=== PATIENT | female | born 1960 | race Caucasian/White ===

== ENCOUNTER 2025-01-01 15:17 | Emergency (ER) | payer MEDICARE, SELFPAY ==
[2025-01-01 15:19] VITALS: BP 122/70; PULSE 96; RESP 15; TEMP 36.4; O2SAT 98; BMI 29.2
--- NOTE | 2025-01-01 16:00 | ED.VIS.GI ---
HPI HPI - GI History of Present Illness Chief Complaint: Abd Pain Detail of Chief Complaint: Abdominal pain Informant: patient Narrative Narrative: Patient presents to the emergency department complaint of abdominal pain that started 5 days ago. She states she has got cyst and left lower quadrant pain. She denies fever. She denies blood in her stool or black tarry stool. She denies urinary symptoms. She states that years ago she had pain on the right side and was diagnosed with colitis. She is never had a colonoscopy. No prior abdominal surgeries. PFSH PFSH Home Medications ?Medication ?Instructions ?Recorded ?Last Taken ?Type ciprofloxacin HCl 500 mg tablet 500 mg PO BID #14 tabs 01/01/25 Unknown Rx (Cipro) metronidazole 500 mg tablet 500 mg PO Q8H #21 tabs 01/01/25 Unknown Rx Allergy/AdvReac Type Severity Reaction Status Date / Time Penicillins Allergy Mild RASH Verified 01/01/25 15:19 Social History Smoking Status: Never smoker ROS ROS ED Review of Systems ROS Unobtainable: other Constitutional Constitutional ED: Reports lethargy; Denies chills, fever(s), sweats or weight loss Eyes Eyes: Denies blurry vision, change in vision or diplopia ENT ENT ED: Denies rhinorrhea or sore throat Cardiovascular Cardiovascular: Denies chest pain, orthopnea or racing heartbeat Respiratory/Chest Respiratory/Chest: Denies cough, dyspnea, dyspnea on exertion, orthopnea or sputum Gastrointestinal Gastrointestinal: Reports abdominal pain; Denies diarrhea, nausea or vomiting Genitourinary Genitourinary ED: Denies dysuria, hematuria or urinary frequency Musculoskeletal Musculoskeletal: Denies arthralgias, back pain, myalgias or neck pain Integumentary Denies abscess, Abrasions or rash Neurologic Neurologic: Denies headache(s) or weakness Psychiatric Psychiatric: Denies anxiety, depression or suicidal thoughts Endocrine Endocrinology: Denies polydipsia, polyphagia or polyuria Hematologic/Lymphatic Hematologic/Lymphatic: Denies easy bleeding, easy bruising or lymphadenopathy Allergic/Immunologic Allergic/Immunologic ED: Denies mouth swelling, tongue swelling or urticaria EXAM Physical Exam Const Vital Signs: 01/01/25 15:19 01/01/25 17:18 Temperature 97.6 F L Temperature Source Oral Pulse Rate 96 82 Respiratory Rate 15 12 Blood Pressure 122/70 H 132/68 H Blood Pressure Mean 87 89 Pulse Ox 98 95 Oxygen Delivery Method Room Air Room Air Positive well nourished and well developed General Appearance ED: well developed and NAD HEENT Reports TM's clear and moist mucous membranes normocephalic and atraumatic; Negative for trauma or tenderness Tympanic Membrane ED: Yes TM's clear Eyes PERRL and EOMs intact bilaterally General Eye ED: Negative for pale conjunctiva or scleral icterus Neck no lymphadenopathy, supple and no JVD General: Negative for tenderness Chest Wall inspection of chest normal and palpation of chest normal Chest: Negative for tenderness Resp normal respiratory effort and clear to auscultation bilaterally Effort and Inspection: Negative for respiratory distress or pain with movement Auscultation: Negative for rhonchi, wheezes or diminished lung sounds Cardio regular rate, regular rhythm, S1 normal heart sound, S2 normal heart sound and no murmurs Peripheral Pulses: pulses 2+ throughout GI normal to inspection, nondistended, normoactive bowel sounds, soft to palpation, non-distended and no masses GI Narrative: Diffuse tenderness over the left lower quadrant and suprapubic region with some guarding. There is no rebound, rigidity, or renal signs. No mass palpated. Back/Spine no CVA tenderness and no thoracic nor lumbar tenderness Extremity normal to inspection General Extremety ED: Negative for edema General Extremity: Negative for edema Neuro oriented x3, CN's II-XII intact bilaterally, no sensory deficits noted and gait normal Sensorium / Orientation: awake, alert, oriented to person, oriented to place and oriented to time Motor Exam: strength 5/5 throughout and strength abnormal Psych mental status grossly normal Skin no rashes or lesions noted and no wounds MDM MDM MDM Narrative Medical decision making narrative: Patient presents with abdominal pain ongoing for about 5 days. Clinically looks well. Pain mostly left-sided. Differential would be kidney stone versus UTI versus diverticulitis or other acute process. IV line established on arrival. She did not want thing for pain. CBC with differential showed a normal white count of 6.5 with hemoglobin 12.9 platelet count of 345. Chemistries unremarkable. LFTs were normal. Lactate normal at 1.2. Urinalysis normal without signs of infection. CT scan of the abdomen pelvis with IV contrast obtained showed inflammatory changes to the right lower quadrant central fat as well as left lower quadrant which could be indicative of diverticulitis. No other acute abnormalities noted. The appendix was normal. There is no evidence of perforation or abscess. Patient was started on Cipro and Flagyl p.o. Discussed results with patient and her significant other. Will refer to GI for follow-up as she has never had a colonoscopy and will likely require colonoscopy once her symptoms have resolved. She is advised to return if worsening pain, fever, vomiting, bloody stools, or her condition should worsen anyway. Lab Data Attestation: I reviewed the patient's lab results. Labs: Laboratory Results - last 24 hr 01/01/25 01/01/25 16:18 16:25 WBC 6.5 RBC 4.39 Hgb 12.9 Hct 40.1 MCV 91.3 MCH 29.4 MCHC 32.2 RDW Std Deviation 41.7 RDW Coeff of Camryn 12.5 Plt Count 345 MPV 8.5 Immature Gran % (Auto) 0.200 Neut % (Auto) 58.1 Lymph % (Auto) 31.6 [place] % (Auto) 7.2 Eos % (Auto) 2.1 Baso % (Auto) 0.8 Absolute Neuts (auto) 3.8 Absolute Lymphs (auto) 2.06 Nucleated RBC % 0 Sodium 139 Potassium 3.9 Chloride 105 Carbon Dioxide 22.5 Anion Gap 12 BUN 11 Creatinine 0.97 Estim Creat Clear Calc 49.76 L Est GFR (MDRD) Non-Af 65 BUN/Creatinine Ratio 11.1 Glucose 118 H Lactic Acid 1.2 Calcium 8.9 Total Bilirubin < 0.15 AST 17 ALT 18 Alkaline Phosphatase 112 H Total Protein 7.1 Albumin 4.3 Globulin 2.8 Albumin/Globulin Ratio 1.5 Lipase 25 Urine Color Yellow Urine Clarity Clear Urine pH 6.0 Ur Specific [place] 1.015 Urine Protein 15 H Urine Glucose (UA) Normal Urine Ketones Negative Urine Occult Blood 10 H Urine Nitrite Negative Urine Bilirubin Negative Urine Urobilinogen Normal Ur Leukocyte Esterase Negative Radiography Diagnostic Testing: Clinical Impression(s) from Imaging Studies Abdomen/Pelvis CT 01/01/25 16:53 IMPRESSION: Right lower quadrant inflammation with central fat (series 2, image 78) may reflect epiploic appendagitis. Additional differential may include acute diverticulitis due to inflammation in close proximity to the distal left colon and underlying scattered diverticuli. Scattered thickened and inflamed small bowel loops may reflect enteritis. No bowel obstruction. Mild thickening of the urinary bladder wall which may reflect partial nondistention versus cystitis; consider correlation with urinalysis. Reading Location: [facility] Discharge Plan Triage Chief Complaint: Abd Pain ED Provider: Kena Grissom Dx/Rx/DC Orders Clinical Impression: Abdominal pain, Acute diverticulitis Instructions: Diverticulitis Dc Prescriptions: New ciprofloxacin HCl [Cipro] 500 mg tablet 500 mg PO BID Qty: 14 0RF metronidazole 500 mg tablet 500 mg PO Q8H Qty: 21 0RF Primary Care Provider: Deb Ayon NP Referrals: Devin Lake DO [Med Staff - Active Staff] - 5-7 Days Deb Ayon FIELD SERVICE ANALYST, FIELD SERVICE ANALYST-C [Primary Care Provider] - Print Language: Lithuanian Disposition Disposition: Home, Self Care
[2025-01-01 16:31] LABS: Bacteria 0 SEEN /hpf (None Seen); Mucous, Urine 0 SEEN /hpf (<or=2+)
[2025-01-01 16:49] LABS: Absolute Lymphocyte Count 2.06 X10^3/uL (0.83-4.51); Absolute Neutrophil Count 3.8 X10^3/uL (2.0-7.7); Basophil# 0.05 X10^3/uL; Basophil% 0.8 % (0-1); Eosinophil# 0.14 X10^3/uL; Eosinophils% 2.1 % (0-5); Hematocrit 40.1 % (37-47); Hemoglobin 12.9 g/dL (12.0-15.0); Lymphocyte # 2.06 X10^3/ul (0.83-4.51); Lymphocyte % 31.6 % (19-41); Mean Corp Hgb Conc 32.2 g/dL (32-36); Mean Corpuscular Hgb 29.4 pg (27.0-32.0); Mean Corpuscular Volume 91.3 fL (81-99); Mean Platelet Vol. 8.5 fl (6.2-12.0); Monocyte# 0.47 X10^3/uL; Monocyte% 7.2 % (0-10); NRBC Flagged by Analyzer 0 % (0-5); Neutrophil # 3.79 X10^3/uL (2.7-7.7); Neutrophil % 58.1 % (47-70); Platelet Count 345 K/mm3 (150-450); RBC Distribution Width CV 12.5 % (11.6-14.6); RBC Distribution Width SD 41.7 fl (35.1-43.9); Red Blood Count 4.39 M/mm3 (4.2-5.4); White Blood Count 6.5 K/mm3 (4.4-11.0)
--- NOTE | 2025-01-01 16:53 | CT_ITS ---
PROCEDURE: ABDOMEN/PELVIS W IV CONT ONLY 01/01/2025 REASON FOR EXAM: LLQ PAIN TECHNIQUE: ABDOMEN/PELVIS W IV CONT ONLY. Coronal and Sagittal reconstruction series were provided. ORAL CONTRAST TYPE: None. CONTRAST: 100 mL of Isovue 370 One or more dose reduction techniques were used (e.g., Automated exposure control, adjustment of the mA and/or kV according to patient size, use of iterative reconstruction technique. RADIATION DOSE SUMMARY: DLP: 700 mGycm COMPARISON: None FINDINGS: Limited sections of the lung bases demonstrate no focal pulmonary mass. Bibasilar subsegmental atelectasis. Scattered calcified granulomas. The liver, spleen, pancreas, both kidneys, and both adrenal glands demonstrate no acute findings. The gallbladder is unremarkable. Tiny hiatal hernia; otherwise stomach is unremarkable. The aorta and IVC demonstrate no acute findings. Mild atherosclerosis of the abdominal vasculature. There is no free air, free fluid or intestinal obstruction. Scattered thickened and inflamed small bowel loops may reflect enteritis. The appendix is normal. Right lower quadrant inflammation with central fat (series 2, image 78) may reflect epiploic appendagitis. Additional differential may include acute diverticulitis due to inflammation in close proximity to the distal left colon and underlying scattered diverticuli. The pelvic structures are intact. There is no solid pelvic mass. Calcified uterine fibroids. Mild thickening of the urinary bladder wall which may reflect partial nondistention versus cystitis; consider correlation with urinalysis. Visualized osseous structures demonstrate no acute abnormality. CT/Abdomen/Pelvis W IV Cont ONLY IMPRESSION: Right lower quadrant inflammation with central fat (series 2, image 78) may ref lect epiploic appendagitis. Additional differential may include acute diverticulitis due to inflammation in close prox imity to the distal left colon and underlying scattered diverticuli. Scattered thickened and inflamed small bowel loops may reflect enteritis. No b owel obstruction. Mild thickening of the urinary bladder wall which may reflect partial nondisten tion versus cystitis; consider correlation with urinalysis. Reading Location: [id number]
[2025-01-01 16:54] LABS: Lipase 25 U/L (13-75)
[2025-01-01 17:05] LABS: ALB/GLOB Ratio 1.5 RATIO (0.9-2.4); AST(SGOT) 17 U/L (<=31); Alanine Aminotransfer ALT/SGPT 18 U/L (<=34); Albumin, Serum 4.3 g/dL (3.4-4.8); Alkaline Phosphatase 112 U/L (35-104); Anion Gap 12 (5-15); BUN 11 mg/dL (4-19); BUN/Creat Ratio 11.1 RATIO (10-20); Calcium,Total 8.9 mg/dL (7.6-11.0); Carbon Dioxide 22.5 mmol/L (21.0-32.0); Chloride 105 mmol/L (98-108); Creatinine, Serum 0.97 mg/dL (0.70-1.20); EST Glomerular Filtration Rate 65 (>60); Estimated Creatinine Clearance 49.76 ml/min (50-250); Globulin 2.8 g/dL (2.2-4.2); Glucose 118 mg/dL (70-99); Potassium 3.9 mmol/L (3.3-5.1); Protein, Total 7.1 g/dL (5.9-8.4); Sodium Level 139 mmol/L (133-145); Total Bilirubin < 0.15 mg/dL (0.00-1.30)
[2025-01-01 17:09] LABS: Lactic Acid 1.2 mmol/L (0.0-2.0)
[2025-01-01 17:11] LABS: Color, Urine Yellow (Yellow); Glucose, Dipstick Normal (Normal); Ketone-Dipstick Negative (Negative); Leukocyte Esterase-Dipstick Negative /ul (Negative); Nitrite-Dipstick Negative (Negative); Occult Blood-Urine 10 /ul (Negative); Protein-Dipstick 15 mg/dl (Negative); Specific Gravity, Urine 1.015 (1.002-1.030); Urine Bilirubin Dipstick Negative (Negative); Urine Clarity Clear (Clear); Urine Urobilinogen Normal (Normal)
[2025-01-01 17:18] VITALS: BP 132/68; PULSE 82; RESP 12; O2SAT 95
[2025-01-01 18:24] VITALS: BP 151/78; PULSE 78; RESP 16; TEMP 37.2; O2SAT 100
[2025-01-01] MEDS: Ciprofloxacin 500 MG Tablet PO (18:28)
[2025-01-01] MEDS: metroNIDAZOLE 500 MG Tablet PO (18:28)
[2025-01-01 19:03] LABS: Red Blood Cells-Urine 0-5 SEEN /hpf (0-5); Squamous Epithelial Cells - UA 0-5 SEEN /hpf (5-10); White Blood Cells 0-5 SEEN /hpf (0-5)
== END 2025-01-01 18:31 | disposition home or self-care (01) ==
PROVIDERS: Emergency Provider Emergency Medicine; PCP Nurse Practitioner Family; Visit Provider Emergency Medicine
DX: K57.92 Diverticulitis of intestine, part unspecified, without perforation or abscess without bleeding (principal); Z87.19 Personal history of other diseases of the digestive system
CPT/HCPCS: 74177; 80053; 81001; 83605; 83690; 85025; 99283; Q9967; A4216